=== PATIENT | male | born 1995 | race African-American/Black ===

== ENCOUNTER 2023-02-19 03:24 | Emergency (ER) | payer MEDICAID ==
[~2023-02-19] VITALS: Ht 177.8 cm; Wt 132.9 kg
[2023-02-19 03:55] VITALS: TEMP 98.5
[2023-02-19] MEDS ORDERED: LIDOCAINE HCL/EPINEPHRINE 1%-EPI 1:100,000 50 ML VIAL INFIL ONE (05:45)
[2023-02-19] MEDS ORDERED: LIDOCAINE 1%/EPI 1:200,000 10 ML VIAL IJ NR (06:15)
[2023-02-19] MEDS ORDERED: BO1 TP (06:55)
[2023-02-19 07:17] VITALS: BP 147/92; PULSE 93; RESP 16
== END 2023-02-19 07:19 | disposition home or self-care (01) ==
LOC: ER 03:24
DX: S91.311A Laceration without foreign body, right foot, initial encounter (principal); S61.401A Unspecified open wound of right hand, initial encounter; W26.8XXA Contact with other sharp object(s), not elsewhere classified, initial encounter; Y93.89 Activity, other specified; Y92.89 Other specified places as the place of occurrence of the external cause; Y99.8 Other external cause status
CPT/HCPCS: 12001; 99282; Z7610 ×2